=== PATIENT | male | born 1980 ===

== ENCOUNTER 2022-04-06 15:53 | Inpatient (IN) | payer MEDICAID ==
[~2022-04-06] VITALS: Ht 182.9 cm; Wt 89.9 kg
[2022-04-06 16:43] LABS: BASOPHILS % (AUTO) 0.6 % (0.0-2.0); EOSINOPHILS % (AUTO) 0.8 % (1.0-6.0); LYMPHOCYTES # (AUTO) 1.3 K/uL (1.0-4.8); LYMPHOCYTES % (AUTO) 27.4 % (22.0-44.0); MEAN CORPUSCULAR HEMOGLOBIN 36.2 pg (26.0-34.0); MEAN CORPUSCULAR HGB CONC 33.9 G/dL (31.0-37.0); MEAN CORPUSCULAR VOLUME 107 fL (80-100); MONOCYTES # (AUTO) 0.4 K/uL (0.1-1.0); MONOCYTES % (AUTO) 8.8 % (2.0-9.0); NEUTROPHILS # (AUTO) 2.9 K/uL (1.8-7.7); NEUTROPHILS % (AUTO) 62.4 % (40.0-70.0); PLATELET COUNT (AUTO) 156 K/uL (150-450); RED BLOOD CELL COUNT(AUTO) 4.41 MIL/uL (4.50-5.90); RED CELL DISTRIBUTION WIDTH 14.8 % (11.5-14.5)
[2022-04-06 17:05] LABS: ALANINE AMINOTRANSFERASE 68 U/L (12-78); ALBUMIN 4.2 g/dL (3.4-5.0); ALKALINE PHOSPHATASE 118 U/L (46-116); ANION GAP 20 mmol/L (8-16); ASPARTATE AMINOTRANSFERASE 156 U/L (15-37); BILIRUBIN,TOTAL 1.9 mg/dL (0.1-1.0); CALCIUM, TOTAL 9.9 mg/dL (8.8-10.5); CARBON DIOXIDE 27 mmol/L (22-29); CHLORIDE 93 mmol/L (98-107); CREATININE 0.95 mg/dL (0.60-1.30); GLUCOSE,RANDOM 93 mg/dL (70-110); SODIUM SERUM 140 mmol/L (136-145); TOTAL PROTEIN, SERUM 8.1 g/dL (6.4-8.2); UREA NITROGEN, BLOOD 18 mg/dL (7-18)
[2022-04-06 17:10] LABS: GLOMERULAR FILTR. RATE CALC > 60 mL/min (>60); POTASSIUM 2.9 mmol/L (3.5-5.1)
[2022-04-06] MEDS ORDERED: POTASSIUM CHLORIDE 20 MEQ ER TABLET PO ONE (17:30)
[2022-04-06 18:11] LABS: COVID AG,FIA SOURCE NASOPHARYNGEAL
[2022-04-06] MEDS ORDERED: IBUPROFEN 600 MG TABLET PO ONE (20:15)
[2022-04-06] MEDS ORDERED: ONDANSETRON HCL 4 MG TABLET PO ONE (20:15)
[2022-04-06] MEDS ORDERED: SODIUM CHLORIDE 0.9% 1,000 ML IV ONE (21:00)
[2022-04-06] MEDS: POTASSIUM CHL 10 MEQ/WATER 50 ML IV SCH ×2 (21:20→22:12)
[2022-04-06] MEDS: LORazepam 2 MG TABLET PO PRN (23:02)
[2022-04-07] VITALS (11 sets, daily range): BP systolic 141–161; BP diastolic 76–111
[2022-04-07] MEDS: ChlordiazePOXIDE HCL 25 MG CAPSULE PO PRN ×2 (02:24→14:35)
[2022-04-07 02:54] LABS: POTASSIUM 3.2 mmol/L (3.5-5.1)
[2022-04-07] MEDS ORDERED: INFLUENZA VIRUS VACCINE QVS 2022-23 (6MO+)/PF 60 MCG/0.5 ML SYRINGE IM. ONE (05:45)
[2022-04-07] MEDS ORDERED: MAGNESIUM HYDROXIDE SUSPENSION 30 ML UDCUP PO PRN ×2 (07:00→09:15)
[2022-04-07] MEDS ORDERED: IBUPROFEN 400 MG TABLET PO PRN ×2 (07:00→09:15)
[2022-04-07] MEDS ORDERED: DOCUSATE SODIUM 100 MG CAPSULE PO PRN ×2 (07:00→09:15)
[2022-04-07] MEDS ORDERED: GuaiFENesin/D-METHORPHAN [SUGAR-FREE] 200-20MG/10 ML SYRUP UDCUP PO PRN ×2 (07:00→09:15)
[2022-04-07] MEDS ORDERED: MAG HYDROX/AL HYDROX/SIMETH ES 30 ML SUSPENSION UDCUP PO PRN ×2 (07:00→09:15)
[2022-04-07] MEDS ORDERED: ONDANSETRON HCL 4 MG TABLET PO PRN ×2 (07:00→09:15)
[2022-04-07] MEDS ORDERED: ACETAMINOPHEN 325 MG TABLET PO PRN ×2 (07:00→09:15)
[2022-04-07] MEDS ORDERED: PETROLATUM,WHITE 28 GM JELLY TP PRN ×2 (07:00→09:15)
[2022-04-07] MEDS ORDERED: ALBUTEROL SULFATE HFA 90 MCG/PUFF 8 GM INHALER IH PRN ×2 (07:00→09:15)
[2022-04-07] MEDS ORDERED: CloNIDine HCL 0.1 MG TABLET PO PRN ×2 (07:00→09:15)
[2022-04-07] MEDS ORDERED: LOPERAMIDE HCL 2 MG CAPSULE PO PRN ×2 (07:00→09:15)
[2022-04-07] MEDS ORDERED: NICOTINE 14 MG/24 HOUR PATCH TD PRN ×2 (07:00→09:15)
[2022-04-07] MEDS: LORazepam 2 MG TABLET PO PRN (08:14)
[2022-04-07 11:02] LABS: APPEARANCE,URINE CLEAR (CLEAR); GLUCOSE, URINE (UA) NEGATIVE (NEGATIVE); KETONES,URINE =>150 mg/dL (NEGATIVE); LEUKOCYTE ESTERASE ,URINE NEGATIVE (NEGATIVE); NITRATE,URINE NEGATIVE (NEGATIVE); OCCULT BLOOD,URINE NEGATIVE (NEGATIVE); PH,URINE 6.5 (5.0-8.0); PROTEIN,URINE 30-70 mg/dL (NEGATIVE); SPECIFIC GRAVITIY, URINE 1.025 (1.003-1.030)
[2022-04-07 11:06] LABS: BILIRUBIN,URINE SMALL (NEGATIVE)
[2022-04-07 11:11] LABS: AMPHET/METH SCREEN,URINE NEGATIVE (NEGATIVE); BARBITURATE SCREEN, URINE NEGATIVE (NEGATIVE); BENZODIAZEPINES SCREEN,URINE POSITIVE (NEGATIVE); CANNABINOID SCREEN,URINE POSITIVE (NEGATIVE); COCAINE SCREEN,URINE NEGATIVE (NEGATIVE); METHADONE SCREEN, URINE NEGATIVE (NEGATIVE); OPIATE SCREEN,URINE NEGATIVE (NEGATIVE)
[2022-04-07 11:13] LABS: PHENCYCLIDINE SCREEN,URINE NEGATIVE (NEGATIVE)
[2022-04-07] MEDS ORDERED: POTASSIUM CHLORIDE 20 MEQ ER TABLET PO ONE (14:45)
[2022-04-07] MEDS ORDERED: CYANOCOBALAMIN 1,000 MCG/ML VIAL IM ONE (16:30)
[2022-04-07] MEDS ORDERED: HydrOXYzine PAMOATE 50 MG CAPSULE PO PRN (16:30)
[2022-04-07] MEDS ORDERED: LORazepam 2 MG TABLET PO PRN (16:30)
[2022-04-07] MEDS: THIAMINE 100 MG TABLET PO SCH (16:45)
[2022-04-07] MEDS: MULTIVITAMINS WITH MINERALS, THERAPEUTIC TABLET PO SCH (16:45)
[2022-04-07] MEDS: FOLIC ACID 1 MG TABLET PO SCH (16:45)
[2022-04-07] MEDS: GABAPENTIN 300 MG CAPSULE PO SCH (16:45)
[2022-04-07] MEDS: ZOLPIDEM TARTRATE 10 MG TABLET PO PRN (23:37)
[2022-04-08] VITALS (10 sets, daily range): BP systolic 132–144; BP diastolic 75–97
[2022-04-08] MEDS ORDERED: LORazepam 2 MG TABLET PO PRN (07:00)
[2022-04-08 07:03] LABS: BASOPHILS % (AUTO) 0.5 % (0.0-2.0); EOSINOPHILS % (AUTO) 2.2 % (1.0-6.0); HEMATOCRIT 41.9 % (41-53); HEMOGLOBIN 14.3 g/dL (13.5-17.5); LYMPHOCYTES # (AUTO) 1.4 K/uL (1.0-4.8); LYMPHOCYTES % (AUTO) 37.5 % (22.0-44.0); MEAN CORPUSCULAR VOLUME 106 fL (80-100); MONOCYTES # (AUTO) 0.5 K/uL (0.1-1.0); MONOCYTES % (AUTO) 13.1 % (2.0-9.0); NEUTROPHILS # (AUTO) 1.8 K/uL (1.8-7.7); NEUTROPHILS % (AUTO) 46.7 % (40.0-70.0); PLATELET COUNT (AUTO) 104 K/uL (150-450); RED BLOOD CELL COUNT(AUTO) 3.97 MIL/uL (4.50-5.90); RED CELL DISTRIBUTION WIDTH 14.3 % (11.5-14.5)
[2022-04-08 07:15] LABS: CHOL/HDL RATIO 1.7 (4.2-7.3)
[2022-04-08 07:18] LABS: HEMOGLOBIN A1C 4.4 % (3.8-5.6)
[2022-04-08 07:22] LABS: ALANINE AMINOTRANSFERASE 48 U/L (12-78); ALBUMIN 3.6 g/dL (3.4-5.0); ALKALINE PHOSPHATASE 99 U/L (46-116); ANION GAP 12 mmol/L (8-16); ASPARTATE AMINOTRANSFERASE 84 U/L (15-37); BILIRUBIN,TOTAL 3.2 mg/dL (0.1-1.0); CALCIUM, TOTAL 9.9 mg/dL (8.8-10.5); CARBON DIOXIDE 28 mmol/L (22-29); CHLORIDE 97 mmol/L (98-107); CREATININE 0.82 mg/dL (0.60-1.30); GLUCOSE,RANDOM 89 mg/dL (70-110); SODIUM SERUM 137 mmol/L (136-145); THYROID STIMULATING HORMONE 1.03 uIU/mL (0.36-3.74); UREA NITROGEN, BLOOD 21 mg/dL (7-18)
[2022-04-08 07:25] LABS: GLOMERULAR FILTR. RATE CALC > 60 mL/min (>60); POTASSIUM 2.9 mmol/L (3.5-5.1)
[2022-04-08] MEDS: ARIPiprazole 10 MG TABLET PO SCH (08:47)
[2022-04-08] MEDS: LORazepam 2 MG TABLET PO SCH ×4 (08:47→21:07)
[2022-04-08] MEDS: GABAPENTIN 300 MG CAPSULE PO SCH ×2 (08:47→16:26)
[2022-04-08] MEDS: FOLIC ACID 1 MG TABLET PO SCH (08:47)
[2022-04-08] MEDS: THIAMINE 100 MG TABLET PO SCH ×2 (08:47→16:27)
[2022-04-08] MEDS: MULTIVITAMINS WITH MINERALS, THERAPEUTIC TABLET PO SCH (08:48)
[2022-04-08] MEDS ORDERED: POTASSIUM CHLORIDE 20 MEQ ER TABLET PO ONE (09:00)
[2022-04-09] VITALS (7 sets, daily range): BP systolic 124–171; BP diastolic 72–115
[2022-04-09] MEDS: LORazepam 2 MG TABLET PO PRN (01:12)
[2022-04-09] MEDS: HALOPERIDOL 5 MG TABLET PO PRN ×2 (01:12→21:00)
[2022-04-09 06:01] LABS: MAGNESIUM 1.4 mg/dL (1.80-2.40); POTASSIUM 3.2 mmol/L (3.5-5.1)
[2022-04-09] MEDS: GABAPENTIN 300 MG CAPSULE PO SCH ×2 (08:12→16:14)
[2022-04-09] MEDS: ARIPiprazole 10 MG TABLET PO SCH (08:12)
[2022-04-09] MEDS: LORazepam 2 MG TABLET PO SCH ×4 (08:13→20:04)
[2022-04-09] MEDS: MULTIVITAMINS WITH MINERALS, THERAPEUTIC TABLET PO SCH (08:13)
[2022-04-09] MEDS: FOLIC ACID 1 MG TABLET PO SCH (08:13)
[2022-04-09] MEDS: THIAMINE 100 MG TABLET PO SCH ×2 (08:13→16:14)
[2022-04-09] MEDS ORDERED: POTASSIUM CHLORIDE 20 MEQ ER TABLET PO PRN (12:15)
[2022-04-09] MEDS ORDERED: POTASSIUM CHLORIDE 10 MEQ ER TABLET PO ONE (18:30)
[2022-04-09] MEDS: ZOLPIDEM TARTRATE 10 MG TABLET PO PRN (21:00)
[2022-04-10] MEDS ORDERED: LORazepam 1 MG TABLET PO PRN (07:00)
[2022-04-10] MEDS: ARIPiprazole 10 MG TABLET PO SCH (09:00)
[2022-04-10] MEDS: THIAMINE 100 MG TABLET PO SCH ×2 (09:00→17:00)
[2022-04-10] MEDS: LORazepam 1 MG TABLET PO SCH ×4 (09:00→21:00)
[2022-04-10] MEDS: MULTIVITAMINS WITH MINERALS, THERAPEUTIC TABLET PO SCH (09:00)
[2022-04-10] MEDS: FOLIC ACID 1 MG TABLET PO SCH (09:00)
[2022-04-10] MEDS: GABAPENTIN 300 MG CAPSULE PO SCH ×2 (09:00→17:00)
[2022-04-10] MEDS ORDERED: MAGNESIUM OXIDE 400 MG TABLET PO ONE (13:30)
[2022-04-11] MEDS ORDERED: LORazepam 1 MG TABLET PO PRN (07:00)
== END 2022-04-11 00:01 | disposition home or self-care (01) | DRG 751 ==
LOC: EMS 15:53 → 3EC 04-07 00:42
PROVIDERS: ADMIT Psychiatry & Neurology Psychiatry; ATTEND Psychiatry & Neurology Psychiatry
DX: F33.3 Major depressive disorder, recurrent, severe with psychotic symptoms (principal); R45.850 Homicidal ideations; R45.851 Suicidal ideations; Z87.891 Personal history of nicotine dependence; F12.10 Cannabis abuse, uncomplicated; F10.20 Alcohol dependence, uncomplicated; E87.6 Hypokalemia; Z20.822 Contact with and (suspected) exposure to COVID-19; E83.42 Hypomagnesemia; E78.5 Hyperlipidemia, unspecified; Z91.14 Patient's other noncompliance with medication regimen
CPT/HCPCS: 80053; 80061; 80307; 81003; 83036; 83735; 84132; 84443; 85025; 99285; G0480; J3420; J3480; J7030; Q0162